=== PATIENT | female | born 1975 | race Caucasian/White ===

== ENCOUNTER 2017-05-24 08:42 | Day surgery (SDC) | payer OTHER ==
[2017-05-23 09:41] VITALS: BMI 27.1
[~2017-05-24 08:42] MED LIST: ACETAMINOPHEN 325 MG TABLET (FP) PO PRN; CIPROFLOXACIN HCL 0.3% OPHTH 2.5ML BOTTLE OP SCH; TRIAMCINOLONE ACET 40MG/1ML VIAL IJ ONE
[2017-05-24 09:31] VITALS: TEMP 97.5
[2017-05-24] MEDS ORDERED: CIPROFLOXACIN 0.3% EYE DROPS 5 ML BOTTLE ONE (09:38)
[2017-05-24] MEDS ORDERED: CIPROFLOXACIN 0.3% EYE DROPS 5 ML BOTTLE OS ONE (09:45)
[2017-05-24] MEDS ORDERED: CIPROFLOXACIN HCL 0.3% OPHTH 2.5ML BOTTLE OS ONE (09:50)
[2017-05-24] MEDS ORDERED: LIDOCAINE 1%/EPI 1:100000 (20 ML MULTI DOSE VIAL) ONE (10:22)
[2017-05-24] MEDS ORDERED: TETRACAINE 0.5% OPHTH SOLN 2 ML BOTTLE ONE (10:24)
[2017-05-24] MEDS ORDERED: TRIAMCINOLONE ACET 40MG/1ML VIAL ONE (10:24)
[2017-05-24] MEDS ORDERED: MIDAZOLAM HCL 2 MG/2 ML SINGLE DOSE VIAL ONE ×2 (10:26→10:49)
[2017-05-24] MEDS ORDERED: LIDOCAINE 1%/EPI 1:100000 (20 ML MULTI DOSE VIAL) IJ ONE ×2 (10:48)
[2017-05-24] MEDS ORDERED: TRIAMCINOLONE ACET 40MG/1ML VIAL IJ ONE (11:14)
[2017-05-24] MEDS ORDERED: ACETAMINOPHEN 325 MG TABLET (FP) ONE (12:18)
[2017-05-24] MEDS ORDERED: ACETAMINOPHEN 325 MG TABLET (FP) PO ONE (12:20)
[2017-05-24 12:27] VITALS: BP 109/62; PULSE 88
--- NOTE | 2017-05-24 21:10 | OP ---
DATE OF OPERATION: 05/24/2017 PREOPERATIVE DIAGNOSIS: Pterygium, left eye. POSTOPERATIVE DIAGNOSIS: Pterygium, left eye. PROCEDURE: Excision of left pterygium with conjunctival autograft, left eye. ANESTHESIA: Topical MAC. COMPLICATIONS: None. PROCEDURE: Patient brought to operating room, correctly identified along with the operative site. She was then prepped and draped in the usual sterile fashion including Betadine solution in the conjunctival sac and an eyelid drape. An eyelid speculum was then placed into the left eye. The borders of the pterygium were marked with a marking pen and 2 relaxing incisions were made superior and inferior to the pterygium. Dissection was performed to bare sclera beneath the pterygium at the limbus. The pterygium was then freed from the corneal surface using blunt dissection with Weck spear sponges as well as Colibri forceps. The remaining tissue was then polished using a 57 blade as well as vannesa bur. The pterygium was then excised at its base and the conjunctival defect measured 5 mm vertically by 6 mm horizontally. Attention was then placed to superotemporal conjunctiva and 6 mm x 6 mm conjunctival graft was then fashioned and brought into place and then secured in the nasal conjunctival defect using five 10-0 nylon sutures. At the end of the surgery, the graft was noted to be well secured and in position. Subconjunctival Kenalog given, topical vancomycin given, the eye patched, and the patient discharged from operating room in a stable condition. ROSANNA NGUYEN M.D. [id number]
--- NOTE | 2017-05-25 12:32 | PATH ---
Surgical Pathology Report Patient Name: FERNANDO GAMEZ [facility]. Rec. #: [id number] /Age/Gender: 1975 (Age: 42) / F Account: [id number] Location: [facility] SURGICAL Taken: 05/24/2017 Received: 05/24/2017 Reported: 05/25/2017 Physicians: Cristian Caballero M.D. Specimen(s) Received PTERYGIUM LEFT EYE Clinical History Pterygium left eye Final Diagnosis EYE, LEFT, PTERYGIUM, EXCISION: CONSISTENT WITH PTERYGIUM. Electronically Signed Shanice Griffiths M.D. Gross Description Received in formalin, labeled "pterygium left eye" is a maldonado, irregular portion of soft tissue measuring 0.2 cm. in greatest dimension. The specimen is submitted in toto in one cassette. 05/24/201705/24/2017
== END 2017-05-24 12:30 | disposition home or self-care (01) ==
LOC: JASU-SURG 08:42
PROVIDERS: ATTEND Ophthalmology
PROC: 08U107Z Supplement of Left Eye with Autologous Tissue Substitute, Open Approach (ICD-10-PCS; principal; 2017-05-24 10:00)
DX: H11.002 Unspecified pterygium of left eye (principal)
CPT/HCPCS: 84703; 88304-TC

== ENCOUNTER 2021-08-17 04:33 | Day surgery (SDC) | payer OTHER ==
[2021-08-16 11:43] VITALS: BMI 27.2
[2021-08-17] MEDS ORDERED: LIDOCAINE HCL/PF 1% SDV 5ML VIAL ONE (07:14)
[2021-08-17] MEDS ORDERED: DEXAMETHASONE SOD PHOSPHATE 10 MG/1 ML VIAL ONE (07:14)
[2021-08-17] MEDS ORDERED: BUPIVACAINE HCL/PF 0.75% 10 ML VIAL ONE (07:14)
[2021-08-17] MEDS ORDERED: LIDOCAINE HCL/PF 2% SDV 5ML VIAL ONE (07:24)
[2021-08-17] MEDS ORDERED: LIDOCAINE HCL 1% PRESERVATIVE FREE - 30ML VIAL NR ONE (10:47)
[2021-08-17] MEDS ORDERED: BUPIVACAINE HCL/PF 0.75% 10 ML VIAL NR ONE (10:48)
[2021-08-17] MEDS ORDERED: IOHEXOL 180 MG/1 ML ML IJ ONE (10:50)
[2021-08-17 13:33] VITALS: BP 100/62; PULSE 68; TEMP 98
== END 2021-08-17 11:50 | disposition home or self-care (01) ==
LOC: JASU-SURG 04:33
PROVIDERS: ATTEND Pain Medicine Pain Medicine
PROC: 3E0T33Z Introduction of Anti-inflammatory into Peripheral Nerves and Plexi, Percutaneous Approach (ICD-10-PCS; 2021-08-17)
PROC: 3E0T3BZ Introduction of Anesthetic Agent into Peripheral Nerves and Plexi, Percutaneous Approach (ICD-10-PCS; principal; 2021-08-17 11:00)
DX: M47.816 Spondylosis without myelopathy or radiculopathy, lumbar region (principal)
CPT/HCPCS: 76000-TC-FY; 81025; J1100

== ENCOUNTER 2021-09-28 04:34 | Day surgery (SDC) | payer OTHER ==
[2021-09-27 10:19] VITALS: BMI 27.2
[2021-09-28] MEDS ORDERED: FENTANYL CITRATE/PF 50 MCG/ML VIAL ONE ×2 (12:36→12:37)
[2021-09-28] MEDS ORDERED: PROPOFOL 20 ML ONE (12:37)
[2021-09-28] MEDS ORDERED: MIDAZOLAM HCL 2 MG/2 ML SINGLE DOSE VIAL ONE (12:37)
[2021-09-28] MEDS ORDERED: LIDOCAINE 1% P/F 10 MG/ML VIAL PNB ONE (13:16)
[2021-09-28] MEDS ORDERED: BUPIVACAINE HCL/PF 0.75% 10 ML VIAL NR ONE (13:19)
[2021-09-28 14:06] VITALS: TEMP 97.2
[2021-09-28 15:18] VITALS: BP 97/50; PULSE 54
== END 2021-09-28 15:35 | disposition home or self-care (01) ==
LOC: JASU-SURG 04:34
PROVIDERS: ATTEND Pain Medicine Pain Medicine
PROC: BR16YZZ Fluoroscopy of Lumbar Facet Joint(s) using Other Contrast (ICD-10-PCS; 2021-09-28)
PROC: 3E0T3BZ Introduction of Anesthetic Agent into Peripheral Nerves and Plexi, Percutaneous Approach (ICD-10-PCS; principal; 2021-09-28 13:00)
DX: M47.816 Spondylosis without myelopathy or radiculopathy, lumbar region (principal)
CPT/HCPCS: 76000-TC-FY; 81025

== ENCOUNTER 2021-11-09 04:22 | Day surgery (SDC) | payer OTHER ==
[2021-10-29 15:56] VITALS: BMI 27.2
[2021-11-09] MEDS ORDERED: LIDOCAINE HCL/PF 2% SDV 5ML VIAL ONE (10:51)
[2021-11-09] MEDS ORDERED: BUPIVACAINE HCL/PF 0.75% 10 ML VIAL PNB ONE (10:57)
[2021-11-09] MEDS ORDERED: LIDOCAINE HCL 1% PRESERVATIVE FREE - 30ML VIAL IJ ONE (10:57)
[2021-11-09] MEDS ORDERED: DEXAMETHASONE SOD PHOSPHATE 10 MG/1 ML VIAL IM ONE (10:57)
[2021-11-09 13:38] VITALS: TEMP 98.7
[2021-11-09 13:44] VITALS: BP 114/71; PULSE 60
== END 2021-11-09 12:00 | disposition home or self-care (01) ==
LOC: JASU-SURG 04:22
PROVIDERS: ATTEND Pain Medicine Pain Medicine
PROC: 3E0T3TZ Introduction of Destructive Agent into Peripheral Nerves and Plexi, Percutaneous Approach (ICD-10-PCS; principal; 2021-11-09 10:00)
PROC: BR16YZZ Fluoroscopy of Lumbar Facet Joint(s) using Other Contrast (ICD-10-PCS; 2021-11-09 10:00)
DX: M47.816 Spondylosis without myelopathy or radiculopathy, lumbar region (principal)
CPT/HCPCS: 76000-TC-FY; 81025; J1100

== ENCOUNTER 2022-03-05 19:24 | Emergency (ER) | payer OTHER ==
[2022-03-05 19:29] VITALS: BP 96/56; PULSE 71; RESP 18; TEMP 98; BMI 25.6
[2022-03-05] MEDS ORDERED: KETOROLAC TROMETHAMINE 30 MG/1 ML VIAL IM ONE (20:48)
[2022-03-05] MEDS ORDERED: KETOROLAC TROMETHAMINE 30 MG/1 ML VIAL ONE (20:54)
== END 2022-03-05 20:59 | disposition home or self-care (01) ==
LOC: JERFT 19:24 → JER 19:24
PROC: 3E0233Z Introduction of Anti-inflammatory into Muscle, Percutaneous Approach (ICD-10-PCS; principal; 2022-03-05)
DX: M54.50 Low back pain, unspecified (principal)
CPT/HCPCS: 99284-25

== ENCOUNTER 2022-11-15 05:18 | Day surgery (SDC) | payer OTHER ==
[2022-11-09 11:55] VITALS: BMI 25.6
[~2022-11-15 05:18] MED LIST changes: -ACETAMINOPHEN 325 MG TABLET (FP) PO PRN; +BUPIVACAINE HCL/PF 0.75% 10 ML VIAL NR ONE; -CIPROFLOXACIN HCL 0.3% OPHTH 2.5ML BOTTLE OP SCH; +DEXAMETHASONE SOD PHOSPHATE 10 MG/1 ML VIAL IM ONE; +LIDOCAINE HCL/PF 2% SDV 5ML VIAL INF ONE; -TRIAMCINOLONE ACET 40MG/1ML VIAL IJ ONE
[2022-11-15] MEDS ORDERED: BUPIVACAINE HCL/PF 0.75% 10 ML VIAL ONE (07:25)
[2022-11-15] MEDS ORDERED: LIDOCAINE HCL/PF 1% SDV 5ML VIAL ONE (07:25)
[2022-11-15] MEDS ORDERED: ACETAMINOPHEN 500 MG TABLET (FP) PO PRN (08:11)
[2022-11-15] MEDS ORDERED: DEXAMETHASONE SOD PHOSPHATE 10 MG/1 ML VIAL ONE (10:44)
[2022-11-15 11:27] VITALS: RESP 18
[2022-11-15] MEDS ORDERED: MIDAZOLAM HCL 2 MG/2 ML SINGLE DOSE VIAL ONE (11:50)
[2022-11-15] MEDS ORDERED: LIDOCAINE HCL 1% PRESERVATIVE FREE - 30ML VIAL IJ ONE (12:34)
[2022-11-15] MEDS ORDERED: LIDOCAINE HCL/PF 2% SDV 5ML VIAL INF ONE (12:46)
[2022-11-15] MEDS ORDERED: BUPIVACAINE HCL/PF 0.75% 10 ML VIAL NR ONE (12:54)
[2022-11-15] MEDS ORDERED: DEXAMETHASONE SOD PHOSPHATE 10 MG/1 ML VIAL IM ONE (12:54)
[2022-11-15 15:05] VITALS: TEMP 97.1
[2022-11-15 15:07] VITALS: BP 111/62; PULSE 56
== END 2022-11-15 14:10 | disposition home or self-care (01) ==
LOC: JASU-SURG 05:18
PROVIDERS: ATTEND Pain Medicine Pain Medicine
PROC: 015B3ZZ Destruction of Lumbar Nerve, Percutaneous Approach (ICD-10-PCS; principal; 2022-11-15 13:00)
DX: M47.816 Spondylosis without myelopathy or radiculopathy, lumbar region (principal)
CPT/HCPCS: 76000-TC-FY; 81025; J1100

== ENCOUNTER 2022-11-23 09:10 | Emergency (ER) | payer OTHER ==
[2022-11-23 09:18] VITALS: TEMP 98.1; BMI 26.5
[2022-11-23] MEDS ORDERED: ASPIRIN 81 MG CHEWABLE TABLETS PO ONE (09:42)
[2022-11-23] MEDS ORDERED: ASPIRIN 81 MG CHEWABLE TABLETS ONE (09:52)
[2022-11-23 10:15] LABS: EOS % 4.8 % (0-4.5); HEMATOCRIT 40.5 % (32.4-45.2); HEMOGLOBIN 13.4 GM/dL (10.7-15.3); LYMPH % 30.2 % (8-40); MCH 29.2 pg (25.7-33.7); MCHC 33.1 g/dl (32.0-36.0); MEAN CELL VOLUME 88.2 fl (80-96); MEAN PLT VOLUME 8.2 fl (7.5-11.1); MONO % 7.6 % (3.8-10.2); NEUT % 56.4 % (42.8-82.8); PLATELET COUNT 373 10^3/uL (134-434); RBC 4.59 M/mm3 (3.60-5.2); RDW 13.3 % (11.6-15.6); WHITE BLOOD COUNT 6.6 K/mm3 (4.0-10.0)
[2022-11-23 10:19] LABS: INR 1.04 (0.83-1.09); PROTHROMBIN TIME (PATIENT) 12.1 SEC (9.7-13.0)
[2022-11-23 10:22] LABS: ACTIVATED PTT 32.2 SECONDS (25.2-36.5)
[2022-11-23 10:29] LABS: CHLORIDE 109 mmol/L (98-107); POTASSIUM 4.1 mmol/L (3.5-5.1); SODIUM 142 mmol/L (136-145)
[2022-11-23 10:31] LABS: CALCIUM 9.3 mg/dL (8.5-10.1)
[2022-11-23 10:32] LABS: ALBUMIN 3.7 g/dl (3.4-5.0); ANION GAP 5 MMOL/L (8-16); BLOOD UREA NITROGEN 10.4 mg/dL (7-18); CO2 28 mmol/L (21-32); GLUCOSE,RANDOM 97 mg/dL (74-106); MAGNESIUM 2.1 mg/dL (1.8-2.4)
[2022-11-23 10:35] LABS: SGOT/AST 18 U/L (15-37); SGPT/ALT 32 U/L (13-61)
[2022-11-23 10:36] LABS: BILIRUBIN,TOTAL 0.6 mg/dL (0.2-1); CREATININE 0.5 mg/dL (0.55-1.3); TOT PROT 6.9 g/dl (6.4-8.2)
[2022-11-23 10:38] LABS: ALK PHOS 57 U/L (45-117)
[2022-11-23 13:01] VITALS: BP 106/61; PULSE 65; RESP 18
[2022-11-23] MEDS ORDERED: MECLIZINE HCL 25 MG TABLET (FP) PO ONE (13:36)
[2022-11-23] MEDS ORDERED: SODIUM CHLORIDE 0.9% 500 ML INFUS.BAG IV ONE (13:37)
[2022-11-23] MEDS ORDERED: MECLIZINE HCL 25 MG TABLET (FP) ONE (13:39)
== END 2022-11-23 15:15 | disposition home or self-care (01) ==
LOC: JER 09:10
DX: R07.9 Chest pain, unspecified (principal); R42 Dizziness and giddiness
CPT/HCPCS: 36415; 71046-TC-FY; 80053; 82550; 83036; 83735; 84484; 85025; 85610; 85730; 93005; 93010; 99285-25

== ENCOUNTER 2023-02-14 05:12 | Day surgery (SDC) | payer OTHER ==
[2023-02-10 09:18] VITALS: BMI 24.7
[~2023-02-14 05:12] MED LIST changes: +ACETAMINOPHEN 500 MG TABLET (FP) PO PRN; +LIDOCAINE HCL 1% PRESERVATIVE FREE - 30ML VIAL IJ ONE
[2023-02-14] MEDS ORDERED: LIDOCAINE HCL/PF 2% SDV 5ML VIAL ONE (07:53)
[2023-02-14] MEDS ORDERED: DEXAMETHASONE SOD PHOSPHATE 10 MG/1 ML VIAL ONE (07:54)
[2023-02-14] MEDS ORDERED: BUPIVACAINE HCL/PF 0.75% 10 ML VIAL ONE (07:54)
[2023-02-14 13:41] VITALS: BP 101/67; PULSE 58; RESP 16; TEMP 96.9
[2023-02-14] MEDS ORDERED: ACETAMINOPHEN 500 MG TABLET (FP) PO PRN (14:44)
== END 2023-02-14 14:15 | disposition home or self-care (01) ==
LOC: JASU-SURG 05:12
PROVIDERS: ATTEND Pain Medicine Pain Medicine
DX: Z53.8 Procedure and treatment not carried out for other reasons (principal)
CPT/HCPCS: 81025; J1100

== ENCOUNTER 2023-02-21 05:08 | Day surgery (SDC) | payer OTHER ==
[2023-02-20 15:29] VITALS: BMI 26.5
[2023-02-21] MEDS ORDERED: LIDOCAINE HCL/PF 2% SDV 5ML VIAL ONE (07:23)
[2023-02-21] MEDS ORDERED: BUPIVACAINE HCL/PF 0.5% (5MG/ML) 10 ML VIAL ONE (07:23)
[2023-02-21] MEDS ORDERED: LIDOCAINE HCL/PF 1% SDV 5ML VIAL ONE (07:23)
[2023-02-21] MEDS ORDERED: DEXAMETHASONE SOD PHOSPHATE 10 MG/1 ML VIAL ONE (07:23)
[2023-02-21 10:43] VITALS: RESP 18
[2023-02-21] MEDS ORDERED: FENTANYL CITRATE/PF 50 MCG/ML VIAL ONE (11:23)
[2023-02-21] MEDS ORDERED: MIDAZOLAM HCL 2 MG/2 ML SINGLE DOSE VIAL ONE (11:23)
[2023-02-21] MEDS ORDERED: LIDOCAINE HCL 1% PRESERVATIVE FREE - 30ML VIAL INF ONE (11:31)
[2023-02-21] MEDS ORDERED: BUPIVACAINE HCL/PF 0.75% 10 ML VIAL NR ONE (11:32)
[2023-02-21] MEDS ORDERED: DEXAMETHASONE SOD PHOSPHATE 10 MG/1 ML VIAL IM ONE (11:34)
[2023-02-21] MEDS ORDERED: LIDOCAINE HCL/PF 2% SDV 5ML VIAL INF ONE (11:35)
[2023-02-21 13:49] VITALS: BP 100/55; PULSE 54; TEMP 97.8
[2023-02-21] MEDS ORDERED: ACETAMINOPHEN 500 MG TABLET (FP) PO PRN (14:33)
== END 2023-02-21 13:05 | disposition home or self-care (01) ==
LOC: JASU-SURG 05:08
PROVIDERS: ATTEND Pain Medicine Pain Medicine
PROC: 01553ZZ Destruction of Median Nerve, Percutaneous Approach (ICD-10-PCS; principal; 2023-02-21 11:00)
DX: M47.816 Spondylosis without myelopathy or radiculopathy, lumbar region (principal)
CPT/HCPCS: 76000-TC-FY; 81025; J1100

== ENCOUNTER 2023-07-04 04:07 | Day surgery (SDC) | payer OTHER ==
[2023-06-28 14:47] VITALS: BMI 26.5
[2023-07-04] MEDS ORDERED: DEXAMETHASONE SOD PHOSPHATE 10 MG/1 ML VIAL ONE (07:18)
[2023-07-04] MEDS ORDERED: LIDOCAINE HCL/PF 1% SDV 5ML VIAL ONE (07:18)
[2023-07-04 09:32] VITALS: RESP 18
[2023-07-04] MEDS ORDERED: MIDAZOLAM HCL 2 MG/2 ML SINGLE DOSE VIAL ONE ×2 (13:15→13:25)
[2023-07-04] MEDS: LIDOCAINE HCL 1% PRESERVATIVE FREE - 30ML VIAL IJ ONE ×2 (13:23)
[2023-07-04] MEDS: IOHEXOL 180 MG/1 ML ML IJ ONE ×2 (13:28)
[2023-07-04] MEDS: DEXAMETHASONE SOD PHOSPHATE 10 MG/1 ML VIAL IM ONE ×2 (13:31)
[2023-07-04] MEDS ORDERED: ACETAMINOPHEN 500 MG TABLET (FP) PO PRN (13:50)
[2023-07-04 14:23] VITALS: PULSE 60
[2023-07-04 14:28] VITALS: TEMP 97.7
[2023-07-04 16:00] VITALS: BP 94/56
== END 2023-07-04 15:45 | disposition home or self-care (01) ==
LOC: JASU-SURG 04:07
PROVIDERS: ATTEND Pain Medicine Pain Medicine
PROC: 3E0R3BZ Introduction of Anesthetic Agent into Spinal Canal, Percutaneous Approach (ICD-10-PCS; 2023-07-04)
PROC: 3E0R33Z Introduction of Anti-inflammatory into Spinal Canal, Percutaneous Approach (ICD-10-PCS; principal; 2023-07-04 11:00)
DX: M54.16 Radiculopathy, lumbar region (principal)
CPT/HCPCS: 76000-TC-FY; 81025; J1100

== ENCOUNTER 2023-08-01 04:45 | Day surgery (SDC) | payer OTHER ==
[2023-07-27 12:44] VITALS: BMI 26.5
[2023-08-01 12:14] VITALS: RESP 18
[2023-08-01] MEDS ORDERED: ACETAMINOPHEN 500 MG TABLET (FP) PO PRN (13:18)
[2023-08-01] MEDS: IOHEXOL 180 MG/1 ML ML IJ ONE ×2 (13:48→13:58)
[2023-08-01] MEDS ORDERED: MIDAZOLAM HCL 2 MG/2 ML SINGLE DOSE VIAL ONE (13:48)
[2023-08-01] MEDS: LIDOCAINE HCL 1% PRESERVATIVE FREE - 30ML VIAL IJ ONE (13:57)
[2023-08-01] MEDS: BUPIVACAINE HCL/PF 0.5% (5 MG/ML) 30 ML VIAL IJ ONE ×2 (14:01)
[2023-08-01] MEDS: TRIAMCINOLONE ACETONIDE 40 MG/ML 10 ML VIAL IJ ONE (14:01)
[2023-08-01 15:42] VITALS: PULSE 68
[2023-08-01 15:43] VITALS: BP 123/77; TEMP 98
== END 2023-08-01 15:17 | disposition home or self-care (01) ==
LOC: JASU-SURG 04:45
PROVIDERS: ATTEND Pain Medicine Pain Medicine
PROC: 3E0U3BZ Introduction of Anesthetic Agent into Joints, Percutaneous Approach (ICD-10-PCS; 2023-08-01)
PROC: 3E0U33Z Introduction of Anti-inflammatory into Joints, Percutaneous Approach (ICD-10-PCS; principal; 2023-08-01 13:30)
DX: M53.3 Sacrococcygeal disorders, not elsewhere classified (principal)
CPT/HCPCS: 76000-TC-FY; 81025

== ENCOUNTER 2024-02-15 04:30 | Day surgery (SDC) | payer OTHER ==
[2024-02-13 11:20] VITALS: BMI 27.4
[2024-02-15] MEDS ORDERED: LIDOCAINE HCL/PF 1% SDV 5ML VIAL ONE (07:27)
[2024-02-15] MEDS ORDERED: DEXAMETHASONE SOD PHOSPHATE 10 MG/1 ML VIAL ONE (07:27)
[2024-02-15] MEDS ORDERED: LIDOCAINE HCL/PF 2% SDV 5ML VIAL ONE (07:27)
[2024-02-15] MEDS ORDERED: BUPIVACAINE HCL/PF 0.75% 10 ML VIAL ONE (07:27)
[2024-02-15] MEDS ORDERED: ACETAMINOPHEN 500 MG TABLET (FP) PO PRN (09:05)
[2024-02-15] MEDS ORDERED: MIDAZOLAM HCL 2 MG/2 ML SINGLE DOSE VIAL ONE (14:53)
[2024-02-15] MEDS: LIDOCAINE HCL 1% PRESERVATIVE FREE - 30ML VIAL IJ ONE (14:58)
[2024-02-15] MEDS: LIDOCAINE HCL/PF 2% SDV 5ML VIAL INF ONE (15:15)
[2024-02-15] MEDS: BUPIVACAINE HCL/PF 0.75% 10 ML VIAL NR ONE ×2 (15:23)
[2024-02-15] MEDS: DEXAMETHASONE SOD PHOSPHATE 10 MG/1 ML VIAL IM ONE ×2 (15:23)
[2024-02-15 15:53] VITALS: BP 91/43; PULSE 62; RESP 16; TEMP 97.7
== END 2024-02-15 16:55 | disposition home or self-care (01) ==
LOC: JASU-SURG 04:30
PROVIDERS: ATTEND Pain Medicine Pain Medicine
PROC: 015B3ZZ Destruction of Lumbar Nerve, Percutaneous Approach (ICD-10-PCS; principal; 2024-02-15 14:45)
DX: M47.816 Spondylosis without myelopathy or radiculopathy, lumbar region (principal)
CPT/HCPCS: 76000-TC-FY; 81025; J1100

== ENCOUNTER 2024-03-29 04:02 | Day surgery (SDC) | payer OTHER ==
[2024-03-29] MEDS: ceFAZolin SODIUM 1 GM VIAL IVPB ONE
[~2024-03-29 04:02] MED LIST changes: -BUPIVACAINE HCL/PF 0.75% 10 ML VIAL NR ONE; -DEXAMETHASONE SOD PHOSPHATE 10 MG/1 ML VIAL IM ONE; -LIDOCAINE HCL 1% PRESERVATIVE FREE - 30ML VIAL IJ ONE; -LIDOCAINE HCL/PF 2% SDV 5ML VIAL INF ONE
[2024-03-29] MEDS ORDERED: LIDOCAINE HCL/PF 1% SDV 5ML VIAL ONE (07:17)
[2024-03-29] MEDS ORDERED: BUPIVACAINE HCL/PF 0.75% 10 ML VIAL ONE (07:17)
[2024-03-29] MEDS ORDERED: DEXAMETHASONE SOD PHOSPHATE 10 MG/1 ML VIAL ONE (07:17)
[2024-03-29] MEDS ORDERED: LIDOCAINE HCL/PF 2% SDV 5ML VIAL ONE (07:31)
[2024-03-29 10:06] VITALS: BMI 26.5
[2024-03-29] MEDS ORDERED: MIDAZOLAM HCL 2 MG/2 ML SINGLE DOSE VIAL ONE (11:59)
[2024-03-29 12:33] VITALS: RESP 16; TEMP 97.8
[2024-03-29 13:18] VITALS: BP 100/57; PULSE 87
== END 2024-03-29 13:38 | disposition home or self-care (01) ==
LOC: JASU-SURG 04:02
PROVIDERS: ATTEND Pain Medicine Pain Medicine
PROC: 015B3ZZ Destruction of Lumbar Nerve, Percutaneous Approach (ICD-10-PCS; principal; 2024-03-29 10:30)
DX: M47.816 Spondylosis without myelopathy or radiculopathy, lumbar region (principal)
CPT/HCPCS: 76000-TC-FY; 81025; J1100

== ENCOUNTER 2024-12-20 06:09 | Day surgery (SDC) | payer OTHER ==
[2024-12-19 12:34] VITALS: BMI 27.4
[2024-12-20 06:58] VITALS: RESP 20
[2024-12-20] MEDS ORDERED: LIDOCAINE HCL/PF 1% SDV 5ML VIAL ONE (07:28)
[2024-12-20] MEDS ORDERED: DEXAMETHASONE SOD PHOSPHATE 10 MG/1 ML VIAL ONE (07:28)
[2024-12-20] MEDS: LIDOCAINE 1% P/F 10 MG/ML VIAL INF ONE ×2 (11:11)
[2024-12-20] MEDS: DEXAMETHASONE SOD PHOSPHATE 10 MG/1 ML VIAL IM ONE ×4 (11:15→11:22)
[2024-12-20] MEDS: IOHEXOL 180 MG/1 ML ML IJ ONE ×2 (11:15)
[2024-12-20 12:09] VITALS: BP 111/68; PULSE 60; TEMP 98.3
== END 2024-12-20 12:16 | disposition home or self-care (01) ==
LOC: JASU-SURG 06:09
PROVIDERS: ATTEND Pain Medicine Pain Medicine
PROC: 3E0R3BZ Introduction of Anesthetic Agent into Spinal Canal, Percutaneous Approach (ICD-10-PCS; 2024-12-20)
PROC: 3E0R33Z Introduction of Anti-inflammatory into Spinal Canal, Percutaneous Approach (ICD-10-PCS; principal; 2024-12-20 09:15)
DX: M54.16 Radiculopathy, lumbar region (principal)
CPT/HCPCS: 76000-TC-FY; J1100